=== PATIENT | female | born 1980 ===

== ENCOUNTER 2020-02-15 20:26 | Outpatient (REF) | payer BC, SELFPAY ==
[2020-02-15 21:58] LABS: Anion Gap 9.1 mmol/L (3-11); BUN 9 mg/dL (7-18); CO2 27.9 mmol/L (21.0-32.0); Calcium 8.9 mg/dL (8.5-10.1); Calculated LDL 113 mg/dL (<100); Chloride 102 mmol/L (98-107); Cholesterol 196 mg/dL (<200); Glucose 81 mg/dL (74-106); HDL Cholesterol 65 mg/dL (40-60); Potassium 4.7 mmol/L (3.5-5.1); Sodium 139 mmol/L (136-145); Triglyceride 91 mg/dL (<150)
== END 2020-02-15 20:46 ==
LOC: NCHCN 20:26
PROVIDERS: PCP Nurse Practitioner Community Health; Visit Provider Nurse Practitioner Community Health
DX: Z13.220 Encounter for screening for lipoid disorders (principal); Z13.228 Encounter for screening for other metabolic disorders
CPT/HCPCS: 80048; 80061

== ENCOUNTER 2020-02-21 10:22 | Outpatient (REF) | payer BC, SELFPAY ==
--- NOTE | 2020-02-21 09:40 | PAPFT_PTH ---
PATIENT: Makayla Horne LOC: [facility]#:[id number] AGE/SX: 39/F ROOM: RE02/21/[address]: Cynthia Deluna : 1980 BED: DIS: 02/21/2020 SPEC #: [id number] RECD: 02/22/20 13:09 STATUS: HARRISON REOleg #: [id number] KRIS: 02/21/20 09:[address]: Cynthia Deluna DEPT: [facility] Cytology RECD BY: Kerline Bean Tissues: 1 - CX/ENDOCX FOR PAP SMEARS Procedures: PAP THIN PREP/[facility] Screening HPV DNA PROBE Comments: [id number]
== END 2020-02-21 10:42 ==
LOC: NCHCN 10:22
PROVIDERS: PCP Nurse Practitioner Community Health; Visit Provider Nurse Practitioner Community Health
DX: Z11.51 Encounter for screening for human papillomavirus (HPV) (principal)
CPT/HCPCS: 88142; 87624

== ENCOUNTER 2023-04-05 16:18 | Outpatient (REF) | payer OTHER, SELFPAY ==
[2023-04-05 21:06] LABS: HCT 39.5 % (36.0-46.0); HGB 13.4 g/dL (11.2-15.7); MCH 31.8 pg (27.0-33.0); MCHC 33.9 % (32.0-36.0); MCV 94 fL (80-95); MPV 10.5 fL (8.0-11.0); Platelet Count 269 10^3/uL (130-400); RBC 4.22 10^6/uL (3.93-5.22); RDW 12.8 % (11.7-14.6); RDW-SD 44.2 fL; WBC 7.11 10^3/uL (4.4-10.8)
[2023-04-05 21:39] LABS: ALT 21 U/L (14-59); AST 11 U/L (15-37); Alkaline Phosphatase 51 U/L (46-116); Anion Gap 9.3 mmol/L (3-11); BUN 15 mg/dL (7-18); Bilirubin, Total 0.8 mg/dL (0.2-1.0); CO2 28.7 mmol/L (21.0-32.0); CREATININE 0.9 mg/dL (0.55-1.02); Calcium 9.3 mg/dL (8.5-10.1); Calculated LDL 100 mg/dL (<100); Chloride 101 mmol/L (98-107); Cholesterol 205 mg/dL (<200); Estimated GFR 82.88 (mL/min/1.73m2); Glucose 92 mg/dL (74-106); HDL Cholesterol 88 mg/dL (40-60); Potassium 4.2 mmol/L (3.5-5.1); Sodium 139 mmol/L (136-145); TSH 1.07 uIU/mL (0.36-3.74); Triglyceride 89 mg/dL (<150)
[2023-04-08 10:32] LABS: Lipoprotein (a) 237 nmol/L (<75)
== END 2023-04-05 16:19 | disposition home or self-care (01) ==
LOC: NCHCN 16:18
PROVIDERS: PCP Nurse Practitioner Community Health; Visit Provider Family Medicine
DX: R53.83 Other fatigue (principal); Z13.220 Encounter for screening for lipoid disorders; Z31.438 Encounter for other genetic testing of female for procreative management; R79.89 Other specified abnormal findings of blood chemistry
CPT/HCPCS: 80053; 80061; 83695; 85027; 84443